=== PATIENT | male | born 1985 | race Caucasian/White ===

== ENCOUNTER 2017-02-18 07:11 | Emergency (ER) | payer OTHER ==
[2017-02-18 07:39] VITALS: BP 156/95
--- NOTE | 2017-02-18 12:34 | Cat Scan Report ---
CT scan of facial bones: History: Facial swelling left eye and cheek: Findings: There is left periorbital swelling with swelling at the left anterior maxilla identified. No fracture is noted of the zygomatic arches the zygomatic bone. There is nondisplaced tiny fracture noted of the anterior wall of left maxillary sinus. No fluid in the left maxillary sinus. The bulb and retrobulbar area appears normal. No obvious evidence of fracture of the nasal bone. Impression: Nondisplaced fracture of the anterior lateral left maxillary sinus the left maxilla. Soft tissue swelling. Minimal pleural thickening right maxillary sinus.
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
[2017-02-18] MEDS ORDERED: ULTRAM PO ONE (13:09)
[2017-02-18] MEDS ORDERED: TENIVAC IM ONE (13:45)
[2017-02-18] MEDS ORDERED: BOOSTRIX IM ONE (13:58)
== END 2017-02-18 14:14 | disposition home or self-care (01) ==
LOC: EEVIPCON 07:11 → ED 07:11
DX: S00.12XA Contusion of left eyelid and periocular area, initial encounter (principal); X58.XXXA Exposure to other specified factors, initial encounter; Y93.89 Activity, other specified; Y92.89 Other specified places as the place of occurrence of the external cause; Y99.8 Other external cause status
CPT/HCPCS: 70486; 90471; 90715